=== PATIENT | female | born 1970 | race Hispanic/Latino ===

== ENCOUNTER 2016-05-25 21:29 | Emergency (ER) | payer OTHER ==
[2016-05-25] MEDS ORDERED: EPINEPHrine 1 MG/10 ML Abboject SYRINGE ONE (21:50)
[2016-05-25] MEDS ORDERED: methylPREDNISolone Sod Succ/PF 125 MG/2 ML VIAL ONE (21:50)
[2016-05-25] MEDS ORDERED: EPINEPHrine 1 mg/ml MDV (1ml Charge) ONE (21:53)
[2016-05-25] MEDS ORDERED: diphenhydrAMINE HCl 50 MG/ML 1 ML VIAL ONE (21:53)
== END 2016-05-26 01:00 | disposition home or self-care (01) ==
LOC: BURERS 21:29
DX: L29.9 Pruritus, unspecified (principal); T45.0X5A Adverse effect of antiallergic and antiemetic drugs, initial encounter; I10 Essential (primary) hypertension; E78.00 Pure hypercholesterolemia, unspecified; E11.9 Type 2 diabetes mellitus without complications; F90.9 Attention-deficit hyperactivity disorder, unspecified type; Z79.4 Long term (current) use of insulin; Z79.899 Other long term (current) drug therapy
CPT/HCPCS: 96372; 96374; 96375; J0171; J1200; J2930

== ENCOUNTER 2018-06-18 09:23 | Emergency (ER) | payer OTHER, SELFPAY ==
[2018-06-18] MEDS ORDERED: predniSONE 20 MG TAB ONE (09:54)
[2018-06-18] MEDS ORDERED: Famotidine 20 MG TAB ONE (09:54)
== END 2018-06-18 10:21 | disposition home or self-care (01) ==
LOC: BURERS 09:23
DX: L50.0 Allergic urticaria (principal); I10 Essential (primary) hypertension; F90.9 Attention-deficit hyperactivity disorder, unspecified type; E78.00 Pure hypercholesterolemia, unspecified; Z79.4 Long term (current) use of insulin; Z79.899 Other long term (current) drug therapy
CPT/HCPCS: 99282